=== PATIENT | female | born 1935 | race Caucasian/White ===

== ENCOUNTER → 2021-03-09 09:15 | Outpatient (CLI) | payer MEDICARE, SELFPAY ==
--- NOTE | 2021-03-09 09:18 | DI.RAD.S_ITS ---
PROCEDURE: XR CERVICAL SPINE 2V OR 3V INDICATIONS: cervical spine ddd TECHNIQUE: 3 view(s) of the cervical spine were acquired. COMPARISON: None. FINDINGS: Bones: No evidence of acute fracture. Straightening of the normal lordotic curvature. Multilevel degenerative endplate sclerosis and spurring. Diffuse facet arthropathy. Severe narrowing of the C5-C6 and moderate narrowing of the C6-C7 disc spaces. Soft tissues: Carotid atherosclerotic plaques incidentally noted. IMPRESSION: Severe mid to lower cervical spondylosis and facet arthropathy Carotid atherosclerosis Dictated by: Christiano Marshall M.D. on 03/09/2021 at 12:14 Approved by: Christiano Marshall M.D. on 03/09/2021 at 12:15
== END ==
PROVIDERS: Family Provider Family Medicine; PCP Family Medicine; Referring Provider Family Medicine; Visit Provider Family Medicine
DX: M47.22 Other spondylosis with radiculopathy, cervical region (principal); I65.29 Occlusion and stenosis of unspecified carotid artery
CPT/HCPCS: 72040

== ENCOUNTER → 2021-10-03 11:55 | Outpatient (CLI) | payer MEDICARE, SELFPAY ==
--- NOTE | 2021-10-03 11:56 | DI.MRI.S_ITS ---
PROCEDURE: MR CERVICAL SPINE WO CON INDICATIONS: Cervical neck radiculopathy Bilateral TECHNIQUE: Noncontrast sagittal T1 spin echo and T2 fast spin echo, sagittal STIR, foraminal oblique sagittal T2 fast spin echo, and axial gradient echo or T2 fast spin echo through the cervical spine. COMPARISON: None. FINDINGS: Image quality: Excellent. Alignment and Curvature: There is normal bony alignment. Bone Marrow: Marrow demonstrates normal overall signal. Spinal Cord: Visualized spinal cord has normal size and signal. No cerebellar tonsillar herniation. Regional Soft Tissues: No paravertebral masses. Prevertebral soft tissues are normal in thickness. C2-C3: No spinal canal or neural foraminal stenosis. C3-C4: No spinal canal stenosis. Mild neural foraminal narrowing due to facet and uncovertebral hypertrophy. C4-C5: No spinal canal or neural foraminal stenosis. C5-C6: Moderate spinal canal stenosis due to posterior disc-osteophyte complex and buckling of the ligamentum flavum. There is flattening of both the ventral and dorsal cord surfaces. No cord signal abnormality. Facet and uncovertebral hypertrophy contribute to severe bilateral neural foraminal stenosis. C6-C7: Mild spinal canal stenosis due to posterior disc-osteophyte complex and buckling of the ligamentum flavum. Moderate bilateral neural foraminal stenosis due to facet and uncovertebral hypertrophy. C7-T1: No spinal canal or neural foraminal stenosis. IMPRESSION: Moderate spinal canal stenosis and severe bilateral neural foraminal stenosis at C5-C6. Dictated by: Nick Esquivel M.D. on 10/03/2021 at 14:34 Approved by: Nick Esquivel M.D. on 10/03/2021 at 14:37
== END ==
PROVIDERS: Family Provider Family Medicine; PCP Family Medicine; Referring Provider Family Medicine; Visit Provider Family Medicine
DX: M54.12 Radiculopathy, cervical region (principal); M48.02 Spinal stenosis, cervical region
CPT/HCPCS: 72141

== ENCOUNTER → 2022-01-30 11:02 | Outpatient (CLI) | payer MEDICARE, SELFPAY ==
[2022-01-30 13:35] LABS: COVID19 -Nasal RAPID Negative (Negative)
== END ==
PROVIDERS: Family Provider Family Medicine; PCP Family Medicine; Referring Provider Physical Medicine & Rehabilitation; Visit Provider Physical Medicine & Rehabilitation
DX: Z01.812 Encounter for preprocedural laboratory examination (principal); Z20.822 Contact with and (suspected) exposure to COVID-19
CPT/HCPCS: 87635; C9803

== ENCOUNTER 2022-01-31 08:31 | Outpatient (CLI) | payer MEDICARE, SELFPAY ==
[2022-01-31] VITALS (8 sets, daily range): BP systolic 121–180; BP diastolic 58–84; PULSE 61–74; RESP 11–20; TEMP 36.6; O2SAT 96–100
--- NOTE | 2022-01-31 | DI.RAD.S_ITS ---
PROCEDURE: PAIN C/T INTERLAMINAR INJECT INDICATIONS: Radiculopathy, cervical region COMPARISON: None. FINDINGS: Fluoroscopic spot filming was performed to verify placement of spinal needles at the C6-C7 interlaminar space level(s), as labeled on the films. Appropriate location(s) of the needle tip(s) was confirmed by injection of iodinated contrast. IMPRESSION: Access needle tip at the C6-C7 interlaminar space for translaminar epidural steroid injection. Dictated by: Margie Paul MD, PhD on 01/31/2022 at 15:02 Approved by: Margie Paul MD, PhD on 01/31/2022 at 15:02
[2022-01-31] MEDS: MIDAZOLAM 2 MG/2 ML VIAL IV (09:44)
[2022-01-31] MEDS: IOPAMIDOL 15 ML VIAL 3 ML INJ (09:45)
[2022-01-31] MEDS: DEXAMETHASONE 10 MG/ML VIAL 30 MG (09:45)
[2022-01-31] MEDS: BUPIVACAINE 0.25% (PF) VIAL 2 ML INJ (09:45)
--- NOTE | 2022-01-31 09:59 | P.PCN_ITS ---
Date/Time/Diagnoses Date of procedure: 01/31/22 Time of procedure: 09:59 Pre-procedure diagnosis: 1. CERVICAL STENOSIS, 2. CERVICAL HNP WITH UPPER EXTREMITY RADICULAR FEATURES Post-procedure diagnosis: same Procedure Notes Procedure: 1. FLUORSCOPICALLY GUIDED CONTRAST CONTROLLED INTERLAMINAR EPIDURAL STEROID INJECTION - C6/7 TL ISMAEL Indications: Noris is referred by Dr. Rodas for treatment of Cervical HNP with Upper Extremity Paresthesias. Physician: Davey Nunez Total Fluoroscopy time (seconds): 35 Total sedation minutes: 14 Complications: none Procedure in detail & Post-procedure care: FINDINGS Cervical Stenosis due to disc deterioration and nerve root irritation and nerve root irritation DESCRIPTION OF PROCEDURE Fluoroscopically guided, contrast-controlled C6/7 translaminar epidural steroid injection with conscious sedation. Following review of allergy and review of potential side effects and complications, including, but not necessarily limited to, infection, allergic reaction, local tissue breakdown, temporary as well as permanent nerve injury, stroke, paralysis, and possible , the patient indicated that patient understood and agreed to proceed. An informed consent document was signed by the patient, witnessed by a nurse, and placed in the patient's chart. Additionally, other treatment options including modalities, medications, and physical therapy were reviewed with the patient. After review of previous anaesthesic history and IV conscious sedation the patient was deemed safe to proceed with today?s procedure with IV conscious sedation as ASA class II designation. Safety time-out was performed to confirm patient ID, procedure to be performed and site of procedure. IV sedation was accomplished with a combination of 2mg of Versed administered by the RN after DO order, titrated to patient comfort during the course of the procedure while the patient remained responsive to all verbal commands. In the prone position, following sterile prep and drape of the cervical region, the C6/7 translaminar space was identified fluoroscopically. The skin was anesthetized via a 25-gauge 1.5-inch needle with 1% lidocaine solution. At this point, a 25-gauge, 2.5-inch short bevel spinal needle was atraumatically introduced and advanced under fluoroscopic guidance into epidural space at the C6/7 translaminar space. Depth was confirmed on lateral view. Radiological data, including multiple fluoroscopic views of the cervical spine, reveal a spinal needle at the C6/7 translaminar space. Lateral views then show placement of the needle in the epidural space. Subsequent views show contrast material flowing superiorly and inferiorly in the epidural space. DSA fluoroscopy with live contrast injection, once again, confirmed no vascular or intrathecal uptake. At this point, using loss of resistance technique with saline and air, the epidural space was entered. Following negative aspiration, injection of approximately 1.5 cc of Isovue-200 with live fluoroscopy in the AP view confirmed epidural flow in the epidural space without vascular or intrathecal uptake observed. Subsequently, a test dose of 1 cc of 1% lidocaine solution was injected and patient was observed for two minutes without signs or symptoms of complications, including abdominal pain, shortness of breath, bilateral upper or lower extremity weakness, nausea and vomiting, prior to steroid injection. At this point, 3cc or 30mg of dexamethasone was then injected without incident. The patient tolerated the procedure well without signs or symptoms of compli cations prior to being transferred to the recovery area for further monitoring, The patient was then transferred to the recovery area where they were observed for an appropriate period of time after the injection. The patient reported a VAS score of 6 prior to the procedure and a post-procedure VAS of 0. POST OP INSTRUCTIONS The patient was provided a Pain Log to continue to record their response to the target-specific procedure prior to follow-up visit with the referring provider. Additionally, specific post-injection care instructions and a contact number to our office were provided if concerns arise regarding possible complications associated with the procedure are suspected.
== END 2022-01-31 10:25 | disposition home or self-care (01) ==
PROVIDERS: Family Provider Family Medicine; PCP Family Medicine; Referring Provider Physical Medicine & Rehabilitation; Visit Provider Physical Medicine & Rehabilitation
DX: M48.02 Spinal stenosis, cervical region (principal); M50.123 Cervical disc disorder at C6-C7 level with radiculopathy
CPT/HCPCS: 62321; 99152; J1100; J2250

== ENCOUNTER → 2022-04-26 10:39 | Outpatient (CLI) | payer MEDICARE, SELFPAY ==
--- NOTE | 2022-04-26 10:42 | DI.RAD.S_ITS ---
PROCEDURE: XR SHOULDER LT MIN 2V INDICATIONS: Left shoulder impingement TECHNIQUE: 3 views of the shoulder were acquired. COMPARISON: None. FINDINGS: Bones: No fractures or dislocations. Moderate acromioclavicular joint and glenohumeral joint osteoarthritic changes are seen. No suspicious bony lesions. Visualized ribs appear intact. Soft tissues: Small calcification adjacent to posterior and lateral aspect of proximal humeral shaft is seen which may represent intra-articular loose body. IMPRESSION: No shoulder fracture or dislocation. Moderate shoulder joint osteoarthritis. Possible small loose body as above. Dictated by: Jhony Oro M.D. on 04/26/2022 at 11:26 Approved by: Jhony Oro M.D. on 04/26/2022 at 11:26
== END ==
PROVIDERS: Family Provider Family Medicine; PCP Family Medicine; Referring Provider Physical Medicine & Rehabilitation; Visit Provider Physical Medicine & Rehabilitation
DX: M75.42 Impingement syndrome of left shoulder (principal); M19.012 Primary osteoarthritis, left shoulder; M25.512 Pain in left shoulder; M54.12 Radiculopathy, cervical region
CPT/HCPCS: 20611; 73030; 99214; J0702

== ENCOUNTER → 2022-04-27 08:26 | Outpatient (CLI) | payer MEDICARE, SELFPAY ==
[2022-04-27 19:37] LABS: Hematocrit 35.2 % (36-46); Hemoglobin 12.3 g/dL (12.0-16.0); Mean Corpuscular HGB Conc 35.1 % (30-36); Mean Corpuscular Hemoglobin 32.2 PG (26-34); Mean Corpuscular Volume 91.8 fL (80-100); Platelet Count 297 X10^3/uL (150-400); Red Blood Cell Count 3.83 X10^6/uL (4.0-5.2); White Blood Cell Count 13.1 X10^3/uL (4.5-11.0)
[2022-04-27 19:39] LABS: Add Manual Diff / Slide Review YES
[2022-04-27 20:27] LABS: Neutrophils Absolute Manual 10349 /uL (3000-5900); Total Cells Counted 100
[2022-04-27 20:28] LABS: RBC Morphology Norm
[2022-04-27 21:01] LABS: BUN Creatinine Ratio 38.4 (6-22); Blood Urea Nitrogen 28 mg/dL (7-17); Calcium 9.7 mg/dL (8.4-10.2); Carbon Dioxide 24 mmol/L (22-32); Chloride 100 mmol/L (98-107); Cholesterol 195 mg/dL (140-199); Estimated Glomerular Filt Rate > 60 mL/min (>60); Glucose 130 mg/dL (80-110); HDL Cholesterol 90 mg/dL (40-60); HEMOLYSIS < 15 (0-50); LDL Cholesterol Calculated 95 mg/dL (<100); Potassium 4.6 mmol/L (3.4-5.1); Sodium 135 mmol/L (137-145); Triglycerides 50 mg/dL (35-150)
== END ==
PROVIDERS: Family Provider Family Medicine; PCP Family Medicine; Visit Provider Family Medicine
DX: I10 Essential (primary) hypertension (principal); E78.2 Mixed hyperlipidemia; K21.9 Gastro-esophageal reflux disease without esophagitis; M25.512 Pain in left shoulder; M54.12 Radiculopathy, cervical region
CPT/HCPCS: 80048; 80061; 85007; 85025

== ENCOUNTER → 2022-06-01 09:05 | Outpatient (CLI) | payer MEDICARE, SELFPAY ==
[2022-06-01 20:22] LABS: Add Manual Diff / Slide Review NO; Basophils Absolute Auto 100 /uL (0-100); Eosinophils Absolute Auto 100 /uL (0-450); Eosinophils Percent Auto 0.9 % (2-4); Hematocrit 33.5 % (36-46); Hemoglobin 11.8 g/dL (12.0-16.0); Lymphocytes Absolute Auto 1600 /uL (1100-4500); Lymphocytes Percent Auto 24.7 % (25-40); Mean Corpuscular HGB Conc 35.2 % (30-36); Mean Corpuscular Hemoglobin 32.6 PG (26-34); Mean Corpuscular Volume 92.8 fL (80-100); Monocytes Absolute Auto 600 /uL (0-900); Monocytes Percent Auto 8.3 % (3-14); Neutrophils Absolute Auto 4400 /uL (1500-7000); Neutrophils Percent Auto 65.1 % (50-75); Platelet Count 247 X10^3/uL (150-400); Red Blood Cell Count 3.61 X10^6/uL (4.0-5.2); Red Cell Distribution Width 13.6 % (11.6-14.8); White Blood Cell Count 6.7 X10^3/uL (4.5-11.0)
[2022-06-01 20:25] LABS: HEMOLYSIS < 15 (0-50); Iron 103 ug/dL (37-170)
[2022-06-01 20:28] LABS: BUN Creatinine Ratio 36.5 (6-22); Blood Urea Nitrogen 27 mg/dL (7-17); Calcium 9.5 mg/dL (8.4-10.2); Carbon Dioxide 30 mmol/L (22-32); Chloride 105 mmol/L (98-107); Estimated Glomerular Filt Rate > 60 mL/min (>60); Glucose 93 mg/dL (80-110); HEMOLYSIS < 15 (0-50); Potassium 4.3 mmol/L (3.4-5.1); Sodium 136 mmol/L (137-145)
[2022-06-01 20:36] LABS: Percent Iron Saturation 37 % (15-50); Total Iron Binding Capacity 277 ug/dL (265-497); Transferrin 221 mg/dL (206-381)
[2022-06-01 21:16] LABS: Vitamin B12 > 1000 pg/mL (239-931)
[2022-06-01 23:09] LABS: Hemoglobin A1C% w Est Avg Glu 5.6 % (4.0-6.0)
== END ==
PROVIDERS: Family Provider Family Medicine; PCP Family Medicine; Visit Provider Family Medicine
DX: R73.9 Hyperglycemia, unspecified (principal); I10 Essential (primary) hypertension; D72.9 Disorder of white blood cells, unspecified; E87.1 Hypo-osmolality and hyponatremia; E78.2 Mixed hyperlipidemia; K21.9 Gastro-esophageal reflux disease without esophagitis
CPT/HCPCS: 80048; 82607; 83036; 83540; 83550; 85025

== ENCOUNTER → 2022-06-20 09:29 | Outpatient (CLI) | payer MEDICARE, SELFPAY ==
[2022-06-22 07:37] LABS: Fecal Immunochemical Test Negative (Negative)
== END ==
PROVIDERS: Family Provider Family Medicine; PCP Family Medicine; Visit Provider Family Medicine
DX: D64.9 Anemia, unspecified (principal)
CPT/HCPCS: 82274

== ENCOUNTER → 2023-01-18 13:31 | Outpatient (CLI) | payer MEDICARE, SELFPAY ==
[2023-01-18 19:57] LABS: Add Manual Diff / Slide Review NO; Basophils Absolute Auto 0 /uL (0-100); Basophils Percent Auto 0.6 % (0-2); Eosinophils Absolute Auto 100 /uL (0-450); Eosinophils Percent Auto 1.7 % (2-4); Hematocrit 34.8 % (36-46); Hemoglobin 12.2 g/dL (12.0-16.0); Lymphocytes Absolute Auto 2400 /uL (1100-4500); Lymphocytes Percent Auto 31.4 % (25-40); Mean Corpuscular HGB Conc 34.9 % (30-36); Mean Corpuscular Hemoglobin 31.8 PG (26-34); Mean Corpuscular Volume 91.1 fL (80-100); Monocytes Absolute Auto 500 /uL (0-900); Monocytes Percent Auto 7.1 % (3-14); Neutrophils Absolute Auto 4500 /uL (1500-7000); Neutrophils Percent Auto 59.2 % (50-75); Platelet Count 284 X10^3/uL (150-400); Red Blood Cell Count 3.82 X10^6/uL (4.0-5.2); White Blood Cell Count 7.7 X10^3/uL (4.5-11.0)
[2023-01-18 20:02] LABS: BUN Creatinine Ratio 34.2 (6-22); Blood Urea Nitrogen 27 mg/dL (7-17); Calcium 9.5 mg/dL (8.4-10.2); Carbon Dioxide 31 mmol/L (22-32); Chloride 99 mmol/L (98-107); Cholesterol 177 mg/dL (140-199); Estimated Glomerular Filt Rate > 60 mL/min (>60); Glucose 119 mg/dL (80-110); HDL Cholesterol 82 mg/dL (40-60); HEMOLYSIS < 15 (0-50); LDL Cholesterol Calculated 63 mg/dL (<100); Potassium 4.1 mmol/L (3.4-5.1); Sodium 137 mmol/L (137-145); Triglycerides 158 mg/dL (35-150)
== END ==
PROVIDERS: Family Provider Family Medicine; PCP Family Medicine; Visit Provider Family Medicine
DX: I10 Essential (primary) hypertension (principal); D64.9 Anemia, unspecified; E78.5 Hyperlipidemia, unspecified; E87.1 Hypo-osmolality and hyponatremia; I65.09 Occlusion and stenosis of unspecified vertebral artery
CPT/HCPCS: 80048; 80061; 84443; 85025

== ENCOUNTER → 2023-11-07 09:00 | Outpatient (CLI) | payer MEDICARE, SELFPAY ==
--- NOTE | 2023-11-07 09:30 | DI.MRI.S_ITS ---
PROCEDURE: MR ORBITS FACE NECK WO/W CON INDICATIONS: vision changes and loss TECHNIQUE: Noncontrast sagittal T1 spin echo, axial FLAIR, axial gradient echo, axial diffusion and ADC acquired through the brain. Coronal STIR, thin-slice axial T1 spin echo through the orbits. After the administration of contrast, thin-slice axial and coronal T1 spin echo with fat saturation through the orbits, axial and coronal and sagittal T1 spin echo with fat saturation through the brain. COMPARISON: [facility], MR, BRAIN WITHOUT CONTRAST, 05/07/2007, 14:30. FINDINGS: Image quality: Diagnostic, with note made of motion artifact. Orbits: Globes are symmetrical. The optic nerves are normal in size, without abnormal signal or enhancement. No retrobulbar masses or fat abnormalities. The extra-ocular muscles are normal and symmetric in appearance. Lacrimal glands are normal. Optic chiasm is normal. Periorbital soft tissues appear normal. CSF spaces: Ventricles are normal in size and shape. Basal cisterns are patent. No extra-axial fluid collections. Brain: No intracranial bleeds or mass effects. No abnormal intracranial enhancement. Phelps-white matter interface is intact. Diffusion weighted images demonstrate no acute ischemic insults. Pituitary gland appears normal, without sellar or suprasellar masses. Brainstem appears normal. Normal intravascular flow voids are present. Skull and face: Calvarial marrow is normal in signal. Note is made of bilateral lens replacements. Incidental note is made of hyperostosis frontalis. This is not considered to be pathologic in a woman of this age. Sinuses: Sinuses and mastoids are clear. IMPRESSION: Normal appearing orbits. Note is made of age-appropriate brain parenchymal volume loss and chronic small vessel ischemic changes. No masses or abnormal enhancement can be seen. No findings of acute or subacute infarction can be seen. No prior territorial infarct can be seen. Dictated by: Ildefonso Gary M.D. on 11/07/2023 at 10:21 Approved by: Ildefonso Gary M.D. on 11/07/2023 at 10:23
== END ==
PROVIDERS: Family Provider Family Medicine; PCP Family Medicine; Referring Provider Family Medicine; Visit Provider Family Medicine
DX: H54.62 Unqualified visual loss, left eye, normal vision right eye (principal); H53.9 Unspecified visual disturbance
CPT/HCPCS: 70543

== ENCOUNTER → 2023-11-12 08:57 | Outpatient (CLI) | payer MEDICARE, SELFPAY ==
[2023-11-12 20:24] LABS: Hematocrit 34.2 % (36-46); Mean Corpuscular Hemoglobin 32.3 PG (26-34); Mean Corpuscular Volume 92.3 fL (80-100); Platelet Count 251 X10^3/uL (150-400); Red Blood Cell Count 3.71 X10^6/uL (4.0-5.2); Red Cell Distribution Width 13.1 % (11.6-14.8); White Blood Cell Count 6.8 X10^3/uL (4.5-11.0)
[2023-11-12 20:26] LABS: Add Manual Diff / Slide Review YES
[2023-11-12 20:27] LABS: BUN Creatinine Ratio 31.4 (6-22); Blood Urea Nitrogen 22 mg/dL (7-17); Calcium 9.8 mg/dL (8.4-10.2); Carbon Dioxide 28 mmol/L (22-32); Chloride 101 mmol/L (98-107); Cholesterol 187 mg/dL (140-199); Estimated Glomerular Filt Rate > 60 mL/min (>60); Glucose 101 mg/dL (80-110); HDL Cholesterol 75 mg/dL (40-60); HEMOLYSIS < 15 (0-50); LDL Cholesterol Calculated 99 mg/dL (<100); Potassium 4.5 mmol/L (3.4-5.1); Sodium 137 mmol/L (137-145); Triglycerides 63 mg/dL (35-150)
[2023-11-12 20:47] LABS: TSH w/ Reflex to FT4 2.85 uIU/mL (0.47-4.68)
[2023-11-12 21:03] LABS: Neutrophils Absolute Manual 3332 /uL (3000-5900); RBC Morphology Normal Morphology; Total Cells Counted 100
== END ==
PROVIDERS: Family Provider Family Medicine; PCP Family Medicine; Visit Provider Family Medicine
DX: I10 Essential (primary) hypertension (principal); E78.5 Hyperlipidemia, unspecified; H53.9 Unspecified visual disturbance
CPT/HCPCS: 80048; 80061; 84443; 85007; 85025

== ENCOUNTER 2024-02-22 10:55 | Emergency (ER) | payer MEDICARE, SELFPAY ==
[2024-02-22 10:58] VITALS: BP 158/70; PULSE 70; RESP 14; TEMP 36.6; O2SAT 99; BMI 24.5
--- NOTE | 2024-02-22 11:05 | DI.RAD.S_ITS ---
PROCEDURE: XR KNEE LT 3V INDICATIONS: atraumatic pain, worse on outside of knee TECHNIQUE: 3 views of the knee were acquired. COMPARISON: None. FINDINGS: Bones: No fractures or dislocations. No patellar subluxation. Mild tricompartmental osteoarthritis is seen. No suspicious bony lesions. Soft tissues: Moderate suprapatellar joint effusion is seen. Chondrocalcinosis in medial and lateral femoral tibial compartments are seen. IMPRESSION: No acute fracture or dislocation. Moderate suprapatellar joint effusion. Mild tricompartmental osteoarthritis and chondrocalcinosis. If indicated, MRI of knee can be done for evaluation of internal derangement. Dictated by: Jhony Oro M.D. on 02/22/2024 at 11:28 Approved by: Jhony Oro M.D. on 02/22/2024 at 11:29
[2024-02-22 11:26] VITALS: PULSE 78
[2024-02-22] MEDS: IBUPROFEN 400 MG TABLET PO (11:33)
--- NOTE | 2024-02-22 11:47 | ED_ITS ---
HPI - Extremity Problem General Chief complaint: Extremity Problem,Nontraumatic Stated complaint: difficulty walking Time Seen by Provider: 02/22/24 11:22 Source: patient Mode of arrival: Ambulatory History of Present Illness HPI Narrative: 88F nonsmoker with history of hyperlipidemia presents with family in the chief complaint of gradually worsening posterior left knee pain over the past week or so. There has been no report of trauma or injury, no long distance travel, no pain or swelling of the calf, no history of clot. No low back pain, numbness or tingling. Her pain is worse with ambulation or with sitting and seems to improv e when standing up. The primary location is in her posterior knee. She denies any systemic complaints such as fever, chills nausea or vomiting. Related Data Home Medications Medication Instructions Recorded Confirmed betamethasone valerate 0.1 % lotion 1 applic topical BID 02/16/21 11/29/23 cholecalciferol (vitamin D3) 125 125 mcg PO DAILY 02/16/21 11/29/23 mcg (5,000 unit) capsule cyanocobalamin (vitamin B-12) 1,000 mcg PO DAILY 02/16/21 11/29/23 1,000 mcg capsule multivitamin 1 tab PO DAILY 02/16/21 11/29/23 Previous Rx's Medication Instructions Recorded triamcinolone acetonide 0.5 % 1 applic topical DAILY PRN 12/29/22 topical cream Dermatitis #15 grams lisinopril 20 mg tablet 20 mg PO BID #180 tabs 09/24/23 hydrochlorothiazide 25 mg tablet See Rx Instructions .Route 12/25/23 .COMPLEX #90 tabs atorvastatin 40 mg tablet See Rx Instructions .Route 02/01/24 .COMPLEX #90 tabs metoprolol succinate 50 mg See Rx Instructions .Route 02/01/24 tablet,extended release 24 hr .COMPLEX #90 tabs Allergies Allergy/AdvReac Type Severity Reaction Status Date / Time gabapentin Allergy Intermediate edema Verified 02/22/24 11:04 amlodipine Allergy Mild swelling Verified 02/22/24 11:04 Review of Systems Review of Systems Narrative: GENERAL: Denies chills, fatigue, malaise, fever, sweats. HEENT: Denies sinus pain, ear pain, sore throat, difficulty swallowing, dizziness. RESPIRATORY: Denies dyspnea, cough, wheezing, hemoptysis, sputum. CARDIOVASCULAR: Denies chest pain, palpitations, orthopnea, edema, GASTROINTESTINAL: Denies nausea, vomiting, abdominal pain, diarrhea, constipation, melena. : Denies dysuria, frequency, incontinence, hematuria, urinary retention. MUSCULOSKELETAL: See HPI SKIN: Denies rash, skin lesions, or other NEUROLOGIC: Denies weakness, headache, numbness, change in speech, confusion, seizures, incoordination. PSYCHIATRIC: No concerning psychosocial issues. 12 point review of systems is negative except for those stated above Patient History Medical History (Updated 02/22/24 @ 12:45 by Heath Hampton DO) Impingement syndrome of left shoulder Chicken pox History of urinary incontinence Hearing loss Pyuria Former cigarette smoker Fever E. coli septicemia Normocytic anemia Surgical History (Updated 11/29/23 @ 11:49 by Davey Hall MD) Anesthesia History of tonsillectomy History of tubal ligation (~1973) S/P laparoscopic cholecystectomy (~04/04/18) Family History Father No problems noted. Mother History of heart disease Hypertension Stroke Sister Breast cancer Grandmother History of heart disease Hypertension Stroke Social History Smoking Status: Former smoker Smoking Status: Former smoker alcohol intake frequency: 0-2 drinks per day Substance Use Type: does not use Exam Initial Vital Signs Initial Vital Signs: Vital Signs Temperature 97.8 F 02/22/24 10:58 Pulse Rate 70 02/22/24 10:58 Respiratory Rate 14 02/22/24 10:58 Blood Pressure 158/70 H 02/22/24 10:58 Pulse Oximetry 99 02/22/24 10:58 Oxygen Delivery Method Room Air 02/22/24 10:58 Course Orders Ordered: ED Orders 02/22/24 11:05 XR knee LT 3V Stat 02/22/24 11:54 US periph venous low extrem lt Stat Discontinued Medications Ibuprofen (Ibuprofen 400 Mg Tablet) 400 mg PO NOW ONE Stop: 02/22/24 11:27 Last Admin: 02/22/24 11:33 Dose: 400 mg Documented By: JASEN Vital Signs Vital signs: Vital Signs - 8 hr 02/22/24 10:58 02/22/24 11:26 02/22/24 12:34 Temperature 97.8 F Pulse Rate 70 69 Pulse Rate [Left Dorsalis Pedis] 78 Respiratory Rate 14 18 Blood Pressure 158/70 H 132/61 Pulse Oximetry 99 96 Oxygen Delivery Method Room Air Room Air MDM - Extremity (Nontraumatic) MDM Narrative Medical decision making narrative: [88] year old patient presents with Multiple etiologies for patient's symptoms considered including, but not limited to: [OA vs. infectious vs. DVT vs. Ayala's Cyst vs. radiculopathy] Prior Charts reviewed in our EMR Primary Historian: patient Labs considered but not indicated Imaging reviewed: US and Xray without acute findings Patient's history and physical exam are reassuring. Multiple diagnoses considered as noted above. Thankfully imaging is reassuring, no evidence of DVT or Ayala cyst. Radicular element considered, however no back pain, no numbness or tingling, certainly no weakness or loss of bowel or bladder. Findings and discharge diagnosis discussed with patient/family followed by crystal erbalization of understanding Return precautions discussed with patient/family whom verbalize understanding of diagnosis and plan Discharge Plan Departure Patient Disposition: Home Clinical Impression: Acute pain of left knee Instructions: DI for Knee Pain Activity Restrictions/Additional Instructions: *You have been diagnosed with [ Left knee pain. Thankfully your Xray and Ultrasound do not show any significant abnormalities. ] *What to do: *Please continue to take your regular medications as directed. *Please follow up with your primary care provider in 2-3 days, call for an appointment. Let them know you were seen in the Emergency Department and that we ask that you be seen in follow up. We will electronically transmit a record of today's note if your PCP is in our system *If you do not have a primary care provider please contact the [facility] Resource line at [phone]. They will ask some questions about your medical history and help get you set up with a doctor in the community. *Return to Emergency Department if you should have any new, worsening or concerning symptoms, such as [fever greater than 101 F, shaking chills, worsening pain, persistent vomiting or other bothersome symptoms] Prescriptions: No Action lisinopril 20 mg tablet 20 mg PO BID Qty: 180 3RF hydrochlorothiazide 25 mg tablet See Rx Instructions .ROUTE .COMPLEX Qty: 90 3RF Dose Instruction: TAKE 1 TABLET BY MOUTH DAILY Rx Instructions: TAKE 1 TABLET BY MOUTH DAILY metoprolol succinate 50 mg tablet extended release 24 hr See Rx Instructions .ROUTE .COMPLEX Qty: 90 1RF Dose Instruction: TAKE 1 TABLET BY MOUTH DAILY Rx Instructions: TAKE 1 TABLET BY MOUTH DAILY atorvastatin 40 mg tablet See Rx Instructions .ROUTE .COMPLEX Qty: 90 1RF Dose Instruction: TAKE 1 TABLET BY MOUTH DAILY Rx Instructions: TAKE 1 TABLET BY MOUTH DAILY multivitamin Tablet 1 tab PO DAILY betamethasone valerate 0.1 % lotion 1 applic topical BID cholecalciferol (vitamin D3) 125 mcg (5,000 unit) capsule 125 mcg PO DAILY cyanocobalamin (vitamin B-12) 1,000 mcg capsule 1,000 mcg PO DAILY triamcinolone acetonide 0.5 % cream 1 applic topical DAILY PRN (Reason: Dermatitis) Qty: 15 0RF Rx Instructions: Apply to affected areas of the eyebrow, scalp for treatment of dermatitis psoriasis daily as needed Referrals: Davey Hall MD [Primary Care Provider] - Stand Alone Forms: Patient Portal/API
--- NOTE | 2024-02-22 11:54 | DI.US.S_ITS ---
PROCEDURE: US PERIPH VENOUS LOW EXTREM LT INDICATIONS: pain and swelling in popliteal fossa, no injury TECHNIQUE: Real-time imaging, as well as color and pulse Doppler interrogation, were performed of the lower extremity deep veins from the inguinal ligament to the popliteal fossa, with documentation of the visualized calf veins. COMPARISON: None. FINDINGS: The common femoral, femoral, popliteal, and the visualized calf veins are normally compressible, and free of intraluminal thrombus. Color and pulse Doppler demonstrate normal phasic intraluminal flow. There is normal augmentation response to distal compression maneuver. IMPRESSION: No evidence of DVT in visualized left lower extremity veins. Dictated by: Jhony Oro M.D. on 02/22/2024 at 13:01 Approved by: Johny Oro M.D. on 02/22/2024 at 13:01
[2024-02-22 12:34] VITALS: BP 132/61; PULSE 69; RESP 18; O2SAT 96
[2024-02-22 12:48] VITALS: TEMP 36.7
== END 2024-02-22 12:45 | disposition home or self-care (01) ==
PROVIDERS: Emergency Provider Emergency Medicine; Family Provider Family Medicine; PCP Family Medicine
DX: M25.562 Pain in left knee (principal)
CPT/HCPCS: 73562; 93971; 99283; 99284

== ENCOUNTER → 2025-01-13 10:18 | Outpatient (CLI) | payer MEDICARE, SELFPAY ==
[2025-01-13 18:50] LABS: Add Manual Diff / Slide Review NO; Basophils Absolute Auto 0 /uL (0-100); Basophils Percent Auto 0.6 % (0-2); Eosinophils Absolute Auto 200 /uL (0-450); Eosinophils Percent Auto 2.4 % (2-4); Hematocrit 35.2 % (36-46); Lymphocytes Absolute Auto 2200 /uL (1100-4500); Lymphocytes Percent Auto 34.8 % (25-40); Mean Corpuscular HGB Conc 34.2 % (30-36); Mean Corpuscular Hemoglobin 31.9 PG (26-34); Mean Corpuscular Volume 93.4 fL (80-100); Monocytes Absolute Auto 600 /uL (0-900); Monocytes Percent Auto 9.3 % (3-14); Neutrophils Absolute Auto 3400 /uL (1500-7000); Neutrophils Percent Auto 52.9 % (50-75); Platelet Count 266 X10^3/uL (150-400); Red Blood Cell Count 3.77 X10^6/uL (4.0-5.2); Red Cell Distribution Width 13.1 % (11.6-14.8); White Blood Cell Count 6.4 X10^3/uL (4.5-11.0)
[2025-01-13 18:56] LABS: BUN Creatinine Ratio 24.3 (6-22); Blood Urea Nitrogen 18 mg/dL (7-17); Calcium 9.7 mg/dL (8.4-10.2); Carbon Dioxide 29 mmol/L (22-32); Chloride 100 mmol/L (98-107); Cholesterol 218 mg/dL (140-199); Estimated Glomerular Filt Rate > 60 mL/min (>60); Glucose 98 mg/dL (80-110); HDL Cholesterol 84 mg/dL (40-60); HEMOLYSIS 15 (0-50); LDL Cholesterol Calculated 118 mg/dL (<100); Potassium 4.6 mmol/L (3.4-5.1); Sodium 135 mmol/L (137-145); Triglycerides 81 mg/dL (35-150)
[2025-01-13 19:53] LABS: Reticulocyte Count, Percent 0.6 % (1.1-2.6)
== END ==
PROVIDERS: Family Provider Family Medicine; PCP Family Medicine; Visit Provider Family Medicine
DX: D64.9 Anemia, unspecified (principal); E78.2 Mixed hyperlipidemia; K21.9 Gastro-esophageal reflux disease without esophagitis; I10 Essential (primary) hypertension
CPT/HCPCS: 80048; 80061; 85025; 85045

== ENCOUNTER → 2025-04-30 09:06 | Outpatient (CLI) | payer MEDICARE, SELFPAY ==
[2025-04-30 19:37] LABS: Add Manual Diff / Slide Review NO; Hematocrit 31.7 % (36-46); Hemoglobin 11.3 g/dL (12.0-16.0); Lymphocytes Absolute Auto 2300 /uL (1100-4500); Mean Corpuscular HGB Conc 35.6 % (30-36); Mean Corpuscular Hemoglobin 32.7 PG (26-34); Mean Corpuscular Volume 91.7 fL (80-100); Platelet Count 273 X10^3/uL (150-400)
[2025-04-30 19:46] LABS: Blood Urea Nitrogen 21 mg/dL (7-17); Calcium 9.2 mg/dL (8.4-10.2); Carbon Dioxide 29 mmol/L (22-32); Chloride 101 mmol/L (98-107); Cholesterol 149 mg/dL (140-199); Estimated Glomerular Filt Rate > 60 mL/min (>60); Glucose 105 mg/dL (70-99); HDL Cholesterol 87 mg/dL (40-60); HEMOLYSIS < 15 (0-50); Potassium 4.8 mmol/L (3.4-5.1); Sodium 135 mmol/L (137-145); Triglycerides 49 mg/dL (35-150)
== END ==
PROVIDERS: Family Provider Family Medicine; PCP Family Medicine; Visit Provider Family Medicine
DX: I10 Essential (primary) hypertension (principal); E78.5 Hyperlipidemia, unspecified; D64.9 Anemia, unspecified
CPT/HCPCS: 80048; 80061; 85025

== ENCOUNTER → 2025-05-21 13:13 | Outpatient (CLI) | payer MEDICARE, SELFPAY ==
[2025-05-21 20:00] LABS: Reticulocyte Count, Percent 0.6 % (1.1-2.6)
[2025-05-21 20:05] LABS: HEMOLYSIS < 15 (0-50); Iron 86 ug/dL (37-170)
[2025-05-21 20:19] LABS: Percent Iron Saturation 32 % (15-50); Total Iron Binding Capacity 270 ug/dL (265-497); Transferrin 226 mg/dL (206-381)
[2025-05-21 20:37] LABS: TSH w/ Reflex to FT4 1.89 uIU/mL (0.47-4.68)
[2025-05-21 20:57] LABS: Vitamin B12 998 pg/mL (239-931)
== END ==
PROVIDERS: Family Provider Family Medicine; PCP Family Medicine; Visit Provider Family Medicine
DX: D64.9 Anemia, unspecified (principal); R53.83 Other fatigue
CPT/HCPCS: 82607; 83540; 83550; 84443; 85045

== ENCOUNTER → 2025-07-27 07:30 | Outpatient (CLI) | payer MEDICARE, SELFPAY ==
[2025-07-27 19:28] LABS: Alanine Aminotransferase 20 IU/L (<35); Albumin 4.0 g/dL (3.5-5.0); Albumin Globulin Ratio 1.7 (1.0-2.8); Alkaline Phosphatase 76 U/L (38-126); Globulin 2.4 g/dL (1.7-4.1); HEMOLYSIS < 15 (0-50); Total Protein 6.4 g/dL (6.3-8.2)
== END ==
PROVIDERS: Family Provider Family Medicine; PCP Family Medicine; Visit Provider Family Medicine
DX: D64.9 Anemia, unspecified (principal)
CPT/HCPCS: 80076; 82248; 82274; 83010; 86880